=== PATIENT | male | born 1980 | race Two or more races ===

== ENCOUNTER → 2016-11-30 | Outpatient (REF) | payer OTHER | LOC: M SMT 13:09 | PROVIDERS: ATTEND Urology | DX: Z30.2 Encounter for sterilization (principal) ==

== ENCOUNTER → 2017-01-27 | Outpatient (REF) | payer OTHER ==
[2017-01-27 15:02] LABS: IMMMOTILE SPERM CENTRIFUGED ABSENT (ABSENT); IMMOTILE SPERM ABSENT (ABSENT); MOTILE SPERM ABSENT (ABSENT); MOTILE SPERM CENTRIFUGED ABSENT (ABSENT)
== END ==
LOC: M SMT 13:27
PROVIDERS: ATTEND Urology
DX: Z98.52 Vasectomy status (principal)